=== PATIENT | female | born 1950 | race Caucasian/White ===

== ENCOUNTER → 2023-06-06 06:28 | Day surgery (SDC) | payer MEDICARE, OTHER, SELFPAY | LOC: GI 06:28 | PROVIDERS: ATTENDING PHYSICIAN Internal Medicine | DX: Z12.11 Encounter for screening for malignant neoplasm of colon (principal); D12.5 Benign neoplasm of sigmoid colon; K55.20 Angiodysplasia of colon without hemorrhage; K57.30 Diverticulosis of large intestine without perforation or abscess without bleeding; Z80.0 Family history of malignant neoplasm of digestive organs | CPT/HCPCS: 45385; 88305 ==

== ENCOUNTER → 2023-12-31 13:56 | Outpatient (REF) | payer MEDICARE, OTHER, SELFPAY | LOC: RAD 13:56 | PROVIDERS: ATTENDING PHYSICIAN Physician Assistant Medical | DX: M85.80 Other specified disorders of bone density and structure, unspecified site (principal); E55.9 Vitamin D deficiency, unspecified; M81.0 Age-related osteoporosis without current pathological fracture | CPT/HCPCS: 77080 ==

== ENCOUNTER → 2024-01-21 16:34 | Outpatient (REF) | payer MEDICARE, OTHER, SELFPAY | LOC: WDC 16:34 | PROVIDERS: ATTENDING PHYSICIAN Physician Assistant Medical | DX: Z12.31 Encounter for screening mammogram for malignant neoplasm of breast (principal) | CPT/HCPCS: 77063; 77067 ==

== ENCOUNTER 2024-01-28 06:11 | Day surgery (SDC) | payer MEDICARE, OTHER, SELFPAY ==
[2024-01-01 12:58] VITALS: BMI 26.9
[2024-01-01 13:31] LABS: Hematocrit 40.7 % (37.0-47.0); Hemoglobin 13.9 g/dL (12.0-16.0); Mean Corp Hgb Conc. 34.2 g/dL (33.0-37.0); Mean Corpuscular Hgb 30.3 pg (27.0-31.0); Mean Corpuscular Volume 88.7 fL (81.0-99.0); Mean Platelet Volume 9.2 fL (7.4-10.4); Platelet Count 373 10^3/uL (130-400); Red Blood Cell Count 4.59 10^6/uL (4.20-5.40); Red Cell Dist. Width 13.7 % (11.5-14.5); White Blood Cell Count 8.5 10^3/uL (4.8-10.8)
[2024-01-01 13:55] LABS: ALT (SGPT) 26 U/L (0-35); AST (SGOT) 25 U/L (14-36); Albumin 4.6 g/dl (3.5-5.0); Alkaline Phosphatase 69 U/L (38-126); Blood Urea Nitrogen 18 mg/dl (7-17); Carbon Dioxide 24 mmol/L (22-30); Chloride 103 mmol/L (98-107); Estimated Creatinine Clearance 63 ml/min; Glucose 88 mg/dl (70-99); Glycohemoglobin (HgbA1c) 5.2 % (4.0-5.6); Potassium 4.6 mmol/L (3.5-5.1); Sodium 141 mmol/L (135-145); Total Bilirubin 0.7 mg/dl (0.2-1.3); Total Protein 7.7 g/dl (6.3-8.2); eGFR > 60.00
--- NOTE | 2024-01-15 15:24 | VNURNOTE ---
Patient is scheduled for an elective R TKA on 01/28/24- She is a same day patient with Dr Judge. Spoke with patient prior to surgery. Introduced role of [facility] Liaison. Patient reports that she lives with her spouse in a MULTI story home.
There are 4 steps to enter and a flight of steps to the second floor.
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 She currently functions independently. She has a cane and rolling walker.
She never had [facility] services before.
PCP is Dr Tiffanie Spann
Discussed [facility] joint protocol and post surgical plans.
Reviewed that she will have [facility] services initially and will then start outpatient PT.
Patient selects [facility] for home care needs and will go to [facility] for outpatient PT. Scheduled for 01/30.
Patient is in agreement with plan and states that her spouse will be home with her. Either spouse or friend will pick her up day of surgery. Advised to bring RW with her day of surgery. Referral placed in [facility].
Plan: [facility] per [facility] joint protocol then outpt PT on 01/30
[2024-01-22 11:21] VITALS: BMI 26.9
[2024-01-28] VITALS (13 sets, daily range): BP systolic 106–161; BP diastolic 62–87; PULSE 70; O2SAT 99; BMI 26.9
[2024-01-28] MEDS: CELEBREX 200 MG PO (06:08)
[2024-01-28] MEDS: TYLENOL 650 MG PO (06:08)
--- NOTE | 2024-01-28 07:50 | W.DS.TRANS ---
DC Summary - Senior Systems Engineer
-
Discharge Instructions:
Sleep Apnea Risk Intermediate
Discharge Diagnosis/Procedures R TKA Dr. Judge 01/28/24
Diet As tolerated
Activity As tolerated,With Walker
Driving Restrictions No driving
Bathing Restrictions OK to Shower
Other Services PT
Wound Care Aquacel dressing in place 7 days then incision
open to air if no drainage (if drainage light
dressing until it resolves)
Instructions:
Stand-Alone Forms: Total Hip/Knee Replacement D/C
Changes to Home Medications: Yes
Discharge Medications:
DC Medications w/original date entered in [facility]
Super Beet Gummy 2 gummy PO DAILY 01/22/24
ascorbic acid (vitamin C) 1,000 mg tablet (Vitamin C) 1,000 mg PO DAILY 01/22/24
calcium 333.33 mg-vit D3 6.67 mcg-magnes 32 mg-vit K2-min-herb tablet 2 tab PO BID 01/22/24
coenzyme Q10 100 mg capsule (CoQ-10) 100 mg PO DAILY 01/22/24
collagen 1 dose PO DAILY 01/22/24
digestive no.8-L.acidophilus 50 million cell-pectin 100 mg tablet (Digestive Enzyme (acidophilus, pectin, bromelain)) 1 tab PO DAILY 01/22/24
glucosam-sod chondro-vit C-sherrie tablet 1 tab PO DAILY 01/22/24
lfgenflqqwj-dcsxcybox-qok C-Mn capsule (Glucosamine-Chondroitin Complex capsule) 1 cap PO DAILY 01/22/24
lisinopril 40 mg tablet 40 mg PO DAILY 01/22/24
sjzmuckn-scetvc-swrau extract 5 mg-6 mg-150 mg capsule (Fruit and Vegetable Daily) 3 cap PO DAILY 01/22/24
magnesium glycinate 100 mg (as glycinate) tablet 100 mg PO HS 01/22/24
multivitamin 1 tab PO DAILY 01/22/24
omega-3 fatty acids 1 cap PO DAILY 01/22/24
red yeast rice 600 mg tablet 1,200 mg PO DAILY 01/22/24
strontium gluconate-vitamins K3-A54-stbrp acid 680 mg-30 mg tablet 2 tab PO HS 01/22/24
acetaminophen 500 mg capsule 1,000 mg (2 x 500 mg) PO Q6H PRN Pain #60 caps 01/28/24
aspirin 325 mg tablet 325 mg PO DAILY #30 tabs 01/28/24
celecoxib 100 mg capsule (Celebrex) 100 mg PO BID #30 caps 01/28/24
dexamethasone 4 mg tablet 4 mg PO BID #7 tabs 01/28/24
docusate sodium 100 mg capsule (Colace) 100 mg PO BID #14 caps 01/28/24
ondansetron 4 mg disintegrating tablet 4 mg PO Q8H #14 tabs 01/28/24
oxycodone 5 mg tablet 5 mg PO Q6H PRN Pain #30 tabs 01/28/24
sennosides 8.6 mg tablet (Senokot) 8.6 mg PO BID PRN Constipation #14 tabs 01/28/24
Home Medication Changes
aspirin 325 mg tablet 325 mg PO DAILY #30 tabs 01/28/24
celecoxib 100 mg capsule (Celebrex) 100 mg PO BID #30 caps 01/28/24
dexamethasone 4 mg tablet 4 mg PO BID #7 tabs 01/28/24
docusate sodium 100 mg capsule (Colace) 100 mg PO BID #14 caps 01/28/24
ondansetron 4 mg disintegrating tablet 4 mg PO Q8H #14 tabs 01/28/24
oxycodone 5 mg tablet 5 mg PO Q6H PRN Pain #30 tabs 01/28/24
sennosides 8.6 mg tablet (Senokot) 8.6 mg PO BID PRN Constipation #14 tabs 01/28/24
Pending Results: No
[2024-01-28] MEDS: ANCEF 5 IV (11:00)
== END 2024-01-28 12:25 | disposition home or self-care (01) ==
LOC: SDS 06:11
PROVIDERS: ATTENDING PHYSICIAN Specialist; FAMILY PHYSICIAN Physician Assistant Medical
DX: M17.11 Unilateral primary osteoarthritis, right knee (principal); I10 Essential (primary) hypertension
CPT/HCPCS: 27447; 36415; 73560; 80053; 83036; 85027; 87070; 93005; 97162; C1713; C1776

== ENCOUNTER → 2025-02-07 14:18 | Outpatient (REF) | payer MEDICARE, OTHER, SELFPAY | LOC: WDC 14:18 | PROVIDERS: ATTENDING PHYSICIAN Physician Assistant Medical | DX: Z12.31 Encounter for screening mammogram for malignant neoplasm of breast (principal) | CPT/HCPCS: 77063; 77067 ==